=== PATIENT | female | born 1995 | race Caucasian/White ===

== ENCOUNTER 2016-09-15 20:22 | Emergency (ER) | payer SELFPAY ==
[~2016-09-15] VITALS: Ht 167.6 cm; Wt 108.9 kg
[2016-09-15 22:00] VITALS: BP 118/74
[2016-09-15 22:08] LABS: BILIRUBIN,URINE NEGATIVE (NEG); GLUCOSE,URINE NEGATIVE (NEG); NITRITE,URINE NEGATIVE (NEG); PH,URINE 5.5; PROTEIN,URINE NEGATIVE (NEG-TRACE); UROBILINOGEN,URINE 0.2 mg/dL (0.2 mg/dL)
[2016-09-15 22:18] LABS: BACTERIA,URINE FEW /HPF (0-FEW); RBC,URINE OCC /HPF (0-2); SQUAMOUS EPITHELIAL CELL,UR MANY /LPF
[2016-09-15 22:38] LABS: BASO # 0.1 x10^3/uL (0.0-0.2); BASO % 1 % (0-3); EOS % 7 % (0-3); HEMATOCRIT 39.8 % (36.0-47.0); HEMOGLOBIN 13.5 g/dL (12.0-15.5); LYMPH # 2.4 x10^3/uL (1.0-4.8); LYMPH % 24 % (24-48); MEAN CORPUSCULAR HEMOGLOBIN 29 pg (25-35); MEAN CORPUSCULAR HGB CONC 34 g/dL (31-37); MEAN CORPUSCULAR VOLUME 87 fL (79-100); MONO % 8 % (0-9); NEUT % 61 % (31-73); PLATELET COUNT 318 x10^3/uL (140-400); RED BLOOD COUNT 4.59 x10^6/uL (3.50-5.40); RED CELL DISTRIBUTION WIDTH 13.1 % (11.5-14.5); WHITE BLOOD COUNT 10.1 x10^3/uL (4.0-11.0)
[2016-09-15 22:47] LABS: CALCIUM 8.9 mg/dL (8.5-10.1); CREATININE 0.9 mg/dL (0.6-1.0); GFR 78.3; POTASSIUM 3.7 mmol/L (3.5-5.1)
--- NOTE | 2016-09-15 22:59 | RAD ---
PROCEDURE CT cervical spine without contrast. HISTORY Right-sided neck pain. No injury. TECHNIQUE Helical CT imaging of the cervical spine is performed without IV contrast. PQRS: One or more the following individualized dose reduction techniques were utilized for the study: 1. Automated exposure control. 2. Adjustment of the mA and/or kV according to patient size. 3. Use of iterative reconstruction technique. COMPARISON None. FINDINGS No perched or jumped facets. There is minimal grade 1 anterolisthesis of C2 on C3. Straightening of normal cervical lordosis may be positional or due to muscle spasm. The alignment is otherwise maintained. No disc space narrowing or degenerative changes are seen. There is no acute fracture. The mastoid air cells are aerated. No high-grade narrowing of the central canal is identified. There is probably moderate right neural foraminal narrowing of C3/C4 due to uncinate process hypertrophy. Other neural foramina appear patent. Probable 5 millimeter hypodense nodule of the left thyroid lobe. Lung apices are clear. IMPRESSION No acute fracture or malalignment. Electronically signed by: Tomy Gould MD (Sep 15, 2016 22:58:28)
[2016-09-16] MEDS ORDERED: CYCL10TA2 PO (00:35)
[2016-09-16] MEDS ORDERED: NAPR500T8 PO (00:35)
--- NOTE | 2016-09-16 00:35 | PHYS DOC ---
Past Medical History Past Medical History: No Pertinent History Past Surgical History: No Surgical History Alcohol Use: None Drug Use: None Adult General Chief Complaint Chief Complaint: Neck Pain [facility] HPI Patient is a 21 year old female who presents complaining of right lateral neck pain, she states she is completely unable to move her neck towards the right side. Patient states this began this morning. Patient describes the pain as sharp. Patient denies any fever headache nausea or vomiting. Patient states she is not sure if she is because her last menstrual cycle was in June. Review of Systems Review of Systems Constitutional: Denies fever or chills [] Eyes: Denies change in visual acuity, redness, or eye pain [] HENT: Denies nasal congestion or sore throat [] Respiratory: Denies cough or shortness of breath [] Cardiovascular: No additional information not addressed in HPI [] GI: Denies abdominal pain, nausea, vomiting, bloody stools or diarrhea [] : Denies dysuria or hematuria [] Musculoskeletal: Right lateral neck pain Integument: Denies rash or skin lesions [] Neurologic: Denies headache, focal weakness or sensory changes [] Endocrine: Denies polyuria or polydipsia [] Allergies Allergies Allergies Coded Allergies Type Severity Reaction Last Updated Verified No Known Drug Allergies 09/15/16 No Physical Exam Physical Exam Constitutional: Well developed, well nourished, no acute distress, non-toxic appearance. [] HENT: Normocephalic, atraumatic, bilateral external ears normal, oropharynx moist, no oral exudates, nose normal. [] Eyes: PERRLA, EOMI, conjunctiva normal, no discharge. [] Neck: Cervical spine with no obvious deformity, patient is favoring the right lateral cervical spine. Paraspinal muscle tenderness to the right cervical spine , supple, no stridor. Negative Kernig sign, negative Brudzinski's sign. Cardiovascular:Heart rate regular rhythm, no murmur [] Lungs & Thorax: Bilateral breath sounds clear to auscultation [] Abdomen: Bowel sounds normal, soft, no tenderness, no masses, no pulsatile masses. [] Skin: Warm, dry, no erythema, no rash. [] Back: No tenderness, no CVA tenderness. [] Extremities: No tenderness, no cyanosis, no clubbing, ROM intact, no edema. [] Neurologic: Alert and oriented X 3, normal motor function, normal sensory function, no focal deficits noted. [] Psychologic: Affect normal, judgement normal, mood normal. [] Current Patient Data Vital Signs Vital Signs Date Time Temp Pulse Resp B/P Pulse Ox O2 Delivery O2 Flow Rate FiO2 09/15/16 22:00 98.5 82 118/74 99 98.5 09/15/16 20:31 18 Room Air Lab Values Laboratory Tests Test 09/15/16 21:03 09/15/16 21:50 09/15/16 22:31 POC Urine HCG, Qualitative Hcg negative (Negative) Urine Collection Type Void Urine Color Yellow Urine Clarity Cloudy Urine pH 5.5 Urine Specific [place] 1.020 Urine Protein Negativemg/dL (NEG-TRACE) Urine Glucose (UA) Negativemg/dL (NEG) Urine Ketones (Stick) Negativemg/dL (NEG) Urine Blood Moderate (NEG) Urine Nitrite Negative (NEG) Urine Bilirubin Negative (NEG) Urine Urobilinogen Dipstick 0.2mg/dL (0.2 mg/dL) Urine Leukocyte Esterase Negative (NEG) Urine RBC Occ/HPF (0-2) Urine WBC 1-4/HPF (0-4) Urine Squamous Epithelial Cells Many/LPF Urine Bacteria Few/HPF (0-FEW) Urine Mucus Marked/LPF White Blood Count 10.1x10^3/uL (4.0-11.0) Red Blood Count 4.59x10^6/uL (3.50-5.40) Hemoglobin 13.5g/dL (12.0-15.5) Hematocrit 39.8% (36.0-47.0) Mean Corpuscular Volume 87fL (79-100) Mean Corpuscular Hemoglobin 29pg (25-35) Mean Corpuscular Hemoglobin Concent 34g/dL (31-37) Red Cell Distribution Width 13.1% (11.5-14.5) Platelet Count 318x10^3/uL (140-400) Neutrophils (%) (Auto) 61% (31-73) Lymphocytes (%) (Auto) 24% (24-48) Monocytes (%) (Auto) 8% (0-9) Eosinophils (%) (Auto) 7% (0-3) H Basophils (%) (Auto) 1% (0-3) Neutrophils # (Auto) 6.2x10^3uL (1.8-7.7) Lymphocytes # (Auto) 2.4x10^3/uL (1.0-4.8) Monocytes # (Auto) 0.8x10^3/uL (0.0-1.1) Eosinophils # (Auto) 0.7x10^3/uL (0.0-0.7) Basophils # (Auto) 0.1x10^3/uL (0.0-0.2) Sodium Level 137mmol/L (136-145) Potassium Level 3.7mmol/L (3.5-5.1) Chloride Level 101mmol/L (98-107) Carbon Dioxide Level 28mmol/L (21-32) Anion Gap 8 (6-14) Blood Urea Nitrogen 13mg/dL (7-20) Creatinine 0.9mg/dL (0.6-1.0) Estimated GFR (Cockcroft-Gault) 78.3 Glucose Level 99mg/dL (70-99) Calcium Level 8.9mg/dL (8.5-10.1) Thyroid Stimulating Hormone (TSH) 3.829uIU/mL (0.358-3.74) H Laboratory Tests 09/15/16 22:31 Laboratory Tests 09/15/16 22:31 EKG EKG [] Radiology/Procedures Radiology/Procedures []PROCEDURE CT cervical spine without contrast. HISTORY Right-sided neck pain. No injury. TECHNIQUE Helical CT imaging of the cervical spine is performed without IV contrast. PQRS: One or more the following individualized dose reduction techniques were utilized for the study: 1. Automated exposure control. 2. Adjustment of the mA and/or kV according to patient size. 3. Use of iterative reconstruction technique. COMPARISON None. FINDINGS No perched or jumped facets. There is minimal grade 1 anterolisthesis of C2 on C3. Straightening of normal cervical lordosis may be positional or due to muscle spasm. The alignment is otherwise maintained. No disc space narrowing or degenerative changes are seen. There is no acute fracture. The mastoid air cells are aerated. No high-grade narrowing of the central canal is identified. There is probably moderate right neural foraminal narrowing of C3/C4 due to uncinate process hypertrophy. Other neural foramina appear patent. Probable 5 millimeter hypodense nodule of the left thyroid lobe. Lung apices are clear. IMPRESSION No acute fracture or malalignment. Electronically signed by: Tomy Kwok MD (Sep 15, 2016 22:58:28) DICTATED and SIGNED BY: TOMY KWOK MD DATE: 09/15/16 2258 CC: CARLOS HERNANDEZ APRN; NO PCP; NON,STAFF ~ Course & Med Decision Making Course & Med Decision Making Pertinent Labs and Imaging studies reviewed. (See chart for details) Patient is in the ED complaining of right lateral neck pain that began this morning. No known injury. CT of the cervical spine was noted for possible thyroid mass otherwise no acute findings. TCH is 3.829. Patient was discharged with a muscle relaxer and naproxen. She is to follow-up with her own doctor or a doctor from the list provided in a week. Dragon Disclaimer Dragon Disclaimer This electronic medical record was generated, in whole or in part, using a voice recognition dictation system. Departure Departure Impression: Primary Impression: Torticollis, acute Additional Impressions: Thyroid mass Hypothyroidism Disposition: 01 HOME, SELF-CARE Condition: STABLE Referrals: NO PCP (PCP) Please follow-up with a doctor from the list provided in one week Patient Instructions: Torticollis, Acute Additional Instructions: You were seen for neck pain. Your CT of the neck shows you could have a thyroid mass. Please follow-up with a doctor from the list provided next week. Scripts Naproxen 500 Mg Tablet.dr1 Tab PO BID #60 TAB Ref 1 Prov:CARLOS HERNANDEZ APRN 09/16/16 Cyclobenzaprine Hcl 10 Mg Tablet1 Tab PO TID #30 TAB Prov:CARLOS HERNANDEZ APRN 09/16/16 Problem Qualifiers Additional Impressions: Hypothyroidism Hypothyroidism type: unspecified Qualified Code: E03.9 - Hypothyroidism, unspecified CARLOS HERNANDEZ APRN Sep 16, 2016 00:35
[2016-09-16 07:37] LABS: NEGATIVE OBC STREP NEG; POSITIVE OBC STREP POS
== END 2016-09-16 00:45 | disposition home or self-care (01) ==
LOC: ER 20:22
DX: M43.6 Torticollis (principal); E03.9 Hypothyroidism, unspecified
CPT/HCPCS: 36415; 72125; 80048; 81001; 81025; 84443; 85027; 87070; 87880; 99285-25

== ENCOUNTER 2019-02-04 10:06 | Emergency (ER) | payer SELFPAY ==
[~2019-02-04] VITALS: Ht 167.6 cm; Wt 108.9 kg
[~2019-02-04 10:06] MED LIST: CYCL10TA2 PO; NAPR500T8 PO
[2019-02-04 10:41] LABS: BILIRUBIN,URINE NEGATIVE (NEG); CLARITY,URINE CLEAR; COLOR,URINE YELLOW; NITRITE,URINE NEGATIVE (NEG); PROTEIN,URINE NEGATIVE (NEG-TRACE); UROBILINOGEN,URINE 0.2 mg/dL (0.2 mg/dL)
[2019-02-04 10:59] LABS: BASO # 0.1 x10^3/uL (0.0-0.2); BASO % 1 % (0-3); EOS # 0.9 x10^3/uL (0.0-0.7); EOS % 8 % (0-3); HEMOGLOBIN 12.6 g/dL (12.0-15.5); LYMPH # 2.8 x10^3/uL (1.0-4.8); LYMPH % 23 % (24-48); MEAN CORPUSCULAR HEMOGLOBIN 28 pg (25-35); MEAN CORPUSCULAR HGB CONC 34 g/dL (31-37); MEAN CORPUSCULAR VOLUME 83 fL (79-100); MONO # 0.9 x10^3/uL (0.0-1.1); MONO % 7 % (0-9); NEUT # 7.6 x10^3/uL (1.8-7.7); NEUT % 62 % (31-73); PLATELET COUNT 338 x10^3/uL (140-400); RED BLOOD COUNT 4.45 x10^6/uL (3.50-5.40); RED CELL DISTRIBUTION WIDTH 14.2 % (11.5-14.5); WHITE BLOOD COUNT 12.3 x10^3/uL (4.0-11.0)
[2019-02-04 11:00] LABS: SQUAMOUS EPITHELIAL CELL,UR MOD /LPF
[2019-02-04 11:01] LABS: BACTERIA,URINE FEW /HPF (0-FEW)
[2019-02-04 11:07] LABS: CREATININE 0.9 mg/dL (0.6-1.0); GFR 76.3
[2019-02-04 11:08] LABS: POTASSIUM 4.4 mmol/L (3.5-5.1)
[2019-02-04 11:13] LABS: ALBUMIN 3.5 g/dL (3.4-5.0); ALBUMIN/GLOBULIN RATIO 0.8 (1.0-1.7); TOTAL BILIRUBIN 0.3 mg/dL (0.2-1.0); TOTAL PROTEIN 7.9 g/dL (6.4-8.2)
--- NOTE | 2019-02-04 11:21 | PHYS DOC ---
Past Medical History Past Medical History: No Pertinent History Past Surgical History: No Surgical History Alcohol Use: None Drug Use: None Adult General Chief Complaint Chief Complaint: ABDOMINAL PAIN HPI HPI Patient is a 24-year-old female who presents to the emergency department for evaluation. She states that for the past 10 days, she has had some lower abdominal discomfort, radiating towards her left flank area. She has had dysuria, but denies any vaginal bleeding or discharge. Her LMP was some point in December. She has had irregular periods. She has not had any fevers, chills, nausea, vomiting, or diarrhea. She states that when she was living in [place], she had an ultrasound which showed some abnormalities in her pelvic area, but when she came back to this area about 2 years ago she had another ultrasound which was normal, and she has not had other follow-up. I did discuss doing a pelvic examination with the patient but she declined. Expressed understanding of aspects of arae which will be limited by not having pelvic examination performed. Review of Systems Review of Systems Constitutional: Denies fever or chills [] Eyes: Denies change in visual acuity, redness, or eye pain [] HENT: Denies nasal congestion or sore throat [] Respiratory: Denies cough or shortness of breath [] Cardiovascular: The patient denies any shortness of breath, chest pain, palpita tions, or orthopnea [] GI: Denies nausea, vomiting, bloody stools or diarrhea [] : Denies vaginal bleeding or discharge or hematuria [] Musculoskeletal: Denies back pain or joint pain [] Integument: Denies rash or skin lesions [] Neurologic: Denies headache, focal weakness or sensory changes [] Endocrine: Denies polyuria or polydipsia [] All other systems were reviewed and found to be within normal limits, except as documented in this note. Allergies Allergies Allergies Coded Allergies Type Severity Reaction Last Updated Verified No Known Drug Allergies 09/15/16 No Physical Exam Physical Exam PHYSICAL EXAM: CONSTITUTIONAL: Well developed, well nourished HEAD: normocephalic, atraumatic EENT: PERRL, EOMI. Conjunctivae normal color, sclerae non-icteric; moist mucous membranes. NECK: Supple, non-tender; no meningismus. LUNGS: Lungs CTA, breathing even and unlabored. Normal air movement. HEART: Regular rate and rhythm, no murmur CHEST: No deformity; non-tender ABDOMEN: The abdomen is soft, there is mild tenderness to palpation diffusely in the abdomen, mostly in the left abdominal area, both mid and lower abdomen, as well as in the suprapubic area, without definite palpable mass, rebound, or guarding, the remainder the abdomen is soft and non-tender, no masses or bruits. EXTREM: Normal ROM; no deformity, no calf tenderness. Normal pulses palpable in all extremities. There is no pedal edema. SKIN: No rash; no diaphoresis NEURO: Alert; normal speech and cognition; CN's grossly intact; strength grossly intact without focal deficit. BACK: There is mild left-sided CVA TTP. Current Patient Data Vital Signs Vital Signs Date Time Temp Pulse Resp B/P (MAP) Pulse Ox O2 Delivery O2 Flow Rate FiO2 02/04/19 10:40 98.7 69 16 151/86 (107) 96 Room Air 98.7 Lab Values Laboratory Tests Test 02/04/19 10:15 02/04/19 10:23 02/04/19 10:50 Urine Collection Type Unknown Urine Color Yellow Urine Clarity Clear Urine pH 6.0 Urine Specific [place] 1.020 Urine Protein Negative mg/dL (NEG-TRACE) Urine Glucose (UA) Negative mg/dL (NEG) Urine Ketones (Stick) Negative mg/dL (NEG) Urine Blood Trace (NEG) Urine Nitrite Negative (NEG) Urine Bilirubin Negative (NEG) Urine Urobilinogen Dipstick 0.2 mg/dL (0.2 mg/dL) Urine Leukocyte Esterase Negative (NEG) Urine RBC 1-2 /HPF (0-2) Urine WBC 1-4 /HPF (0-4) Urine Squamous Epithelial Cells Mod /LPF Urine Bacteria Few /HPF (0-FEW) Urine Mucus Mod /LPF POC Urine HCG, Qualitative Hcg negative (Negative) White Blood Count 12.3 x10^3/uL (4.0-11.0) H Red Blood Count 4.45 x10^6/uL (3.50-5.40) Hemoglobin 12.6 g/dL (12.0-15.5) Hematocrit 37.0 % (36.0-47.0) Mean Corpuscular Volume 83 fL (79-100) Mean Corpuscular Hemoglobin 28 pg (25-35) Mean Corpuscular Hemoglobin Concent 34 g/dL (31-37) Red Cell Distribution Width 14.2 % (11.5-14.5) Platelet Count 338 x10^3/uL (140-400) Neutrophils (%) (Auto) 62 % (31-73) Lymphocytes (%) (Auto) 23 % (24-48) L Monocytes (%) (Auto) 7 % (0-9) Eosinophils (%) (Auto) 8 % (0-3) H Basophils (%) (Auto) 1 % (0-3) Neutrophils # (Auto) 7.6 x10^3/uL (1.8-7.7) Lymphocytes # (Auto) 2.8 x10^3/uL (1.0-4.8) Monocytes # (Auto) 0.9 x10^3/uL (0.0-1.1) Eosinophils # (Auto) 0.9 x10^3/uL (0.0-0.7) H Basophils # (Auto) 0.1 x10^3/uL (0.0-0.2) Sodium Level 139 mmol/L (136-145) Potassium Level 4.4 mmol/L (3.5-5.1) Chloride Level 105 mmol/L (98-107) Carbon Dioxide Level 27 mmol/L (21-32) Anion Gap 7 (6-14) Blood Urea Nitrogen 13 mg/dL (7-20) Creatinine 0.9 mg/dL (0.6-1.0) Estimated GFR (Cockcroft-Gault) 76.3 BUN/Creatinine Ratio 14 (6-20) Glucose Level 112 mg/dL (70-99) H Calcium Level 9.0 mg/dL (8.5-10.1) Total Bilirubin 0.3 mg/dL (0.2-1.0) Aspartate Amino Transferase (AST) 27 U/L (15-37) Alanine Aminotransferase (ALT) 21 U/L (14-59) Alkaline Phosphatase 72 U/L (46-116) Total Protein 7.9 g/dL (6.4-8.2) Albumin 3.5 g/dL (3.4-5.0) Albumin/Globulin Ratio 0.8 (1.0-1.7) L Lipase 133 U/L (73-393) Laboratory Tests 02/04/19 10:50 Laboratory Tests 02/04/19 10:50 EKG EKG [] Radiology/Procedures Radiology/Procedures [PROCEDURE: CT ABDOMEN PELVIS WO CONTRAST PQRS Compliance Statement: One or more of the following individualized dose reduction techniques were utilized for this examination: 1. Automated exposure control 2. Adjustment of the mA and/or kV according to patient size 3. Use of iterative reconstruction technique CT abdomen/pelvis without contrast 02/04/2019 11:23 AM INDICATION: Left flank pain COMPARISON: None available TECHNIQUE: Multiple axial CT images of the abdomen and pelvis were obtained without intravenous contrast. Coronal and sagittal reformats are provided. FINDINGS: Lung bases are clear. Heart size within normal limits. Evaluation of the solid abdominal viscera is limited by lack of intravenous contrast. Liver, spleen, bilateral adrenal glands, pancreas and gallbladder are normal in appearance. The abdominal aorta is normal in course and caliber. There are no pathologically enlarged lymph nodes in the abdomen and pelvis. There is no abdominal free fluid. There is no free intraperitoneal air. Small and large bowel are normal in caliber. There is no evidence for bowel obstruction. There are no pericolonic inflammatory changes. A normal, nondilated appendix is visualized without adjacent inflammatory changes. The kidneys are relatively symmetric in appearance. There is no suspicious renal mass within the limitations of a noncontrast examination. There is no hydronephrosis. There are no calculi within the kidneys, ureters or urinary bladder. There may be a duplicated left ureter. Urinary bladder is within normal limits given degree of distention. Uterus is normal in appearance. Tubular fluid-filled structure is identified in the left adnexa may represent follicular changes within the left ovary versus hydrosalpinx. There may be mild right hydrosalpinx. No suspicious osseous abnormality is identified. IMPRESSION: 1. Suspect bilateral hydrosalpinx. Further characterization with pelvic ultrasound may be of benefit. Follicular changes are noted in the adnexa bilaterally. No free fluid. 2. No obstructive uropathy. There may be duplication of the left ureter.] Course & Med Decision Making Course & Med Decision Making Pertinent Labs and Imaging studies reviewed. (See chart for details) []1:20 PM: The patient's condition remains stable. I discussed test results with the patient, the need for close outpatient gynecology follow-up and return precautions. Her symptoms are suggestive of a urinary tract infection, and she'll be treated presumptively for such. Dragon Disclaimer Dragon Disclaimer This electronic medical record was generated, in whole or in part, using a voice recognition dictation system. Departure Departure Impression: Primary Impression: Abdominal pain Disposition: 01 HOME, SELF-CARE Condition: STABLE Referrals: MOISE BRO Jr, MD Patient Instructions: Abdominal Pain, Urinary Tract Infection Scripts Sulfamethoxazole/Trimethoprim (BACTRIM DS TABLET) 1 Each Tablet 1 TAB PO BID, #14 TAB Prov: CHRISTIANNE HOWELL MD 02/04/19 CHRISTIANNE HOWELL MD Feb 04, 2019 11:21
--- NOTE | 2019-02-04 12:14 | RAD ---
PQRS Compliance Statement: One or more of the following individualized dose reduction techniques were utilized for this examination: 1. Automated exposure control 2. Adjustment of the mA and/or kV according to patient size 3. Use of iterative reconstruction technique CT abdomen/pelvis without contrast 02/04/2019 11:23 AM INDICATION: Left flank pain COMPARISON: None available TECHNIQUE: Multiple axial CT images of the abdomen and pelvis were obtained without intravenous contrast. Coronal and sagittal reformats are provided. FINDINGS: Lung bases are clear. Heart size within normal limits. Evaluation of the solid abdominal viscera is limited by lack of intravenous contrast. Liver, spleen, bilateral adrenal glands, pancreas and gallbladder are normal in appearance. The abdominal aorta is normal in course and caliber. There are no pathologically enlarged lymph nodes in the abdomen and pelvis. There is no abdominal free fluid. There is no free intraperitoneal air. Small and large bowel are normal in caliber. There is no evidence for bowel obstruction. There are no pericolonic inflammatory changes. A normal, nondilated appendix is visualized without adjacent inflammatory changes. The kidneys are relatively symmetric in appearance. There is no suspicious renal mass within the limitations of a noncontrast examination. There is no hydronephrosis. There are no calculi within the kidneys, ureters or urinary bladder. There may be a duplicated left ureter. Urinary bladder is within normal limits given degree of distention. Uterus is normal in appearance. Tubular fluid-filled structure is identified in the left adnexa may represent follicular changes within the left ovary versus hydrosalpinx. There may be mild right hydrosalpinx. No suspicious osseous abnormality is identified. IMPRESSION: 1. Suspect bilateral hydrosalpinx. Further characterization with pelvic ultrasound may be of benefit. Follicular changes are noted in the adnexa bilaterally. No free fluid. 2. No obstructive uropathy. There may be duplication of the left ureter. Electronically signed by: Diana Conroy MD (02/04/2019 12:11 PM) [id number]
[2019-02-04 13:20] VITALS: BP 118/72
[2019-02-04] MEDS ORDERED: SULF1TAB24 PO (13:25)
== END 2019-02-04 13:45 | disposition home or self-care (01) ==
LOC: ER 10:06
DX: R10.84 Generalized abdominal pain (principal); R30.0 Dysuria
CPT/HCPCS: 36415; 74176; 80053; 81001; 81025; 83690; 85025; 99285-25

== ENCOUNTER 2019-11-04 17:27 | Emergency (ER) | payer SELFPAY ==
[~2019-11-04] VITALS: Ht 172.7 cm; Wt 100.0 kg
[~2019-11-04 17:27] MED LIST changes: +SULF1TAB24 PO
--- NOTE | 2019-11-04 18:28 | RAD ---
INDICATION: Cough COMPARISON: None. FINDINGS: Single view of chest obtained. Hypoexpanded examination without definite focal airspace consolidation. Cardiac silhouette is mildly prominent but likely exaggerated by portable technique. IMPRESSION: * Hypoexpanded exam without focal airspace consolidation. Electronically signed by: David Masters MD (11/04/2019 6:25 PM) [id number]
[2019-11-04] MEDS ORDERED: BENZ100C PO (18:59)
[2019-11-04] MEDS ORDERED: CETI10TA24 PO (18:59)
--- NOTE | 2019-11-04 19:03 | PHYS DOC ---
Past Medical History Past Medical History: No Pertinent History Past Surgical History: No Surgical History Smoking Status: Never Smoker Alcohol Use: None Drug Use: None General Adult EDM: Chief Complaint: COUGH HPI: HPI: Patient is a 24 year old female with no significant medical history who presents to the ED today complaining of a productive cough, nasal congestion and teary eyes, symptoms began 4 days ago. Patient denies any fever. 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 She states several people in the plant have pneumonia and "stuff" but she does not know anyone who has been diagnosed with COVID19. Denies any chest pain or shortness of breath. Denies any fever. Review of Systems: Review of Systems: Constitutional: Denies fever or chills. [] Eyes: Reports teary eyes. Denies change in visual acuity. [] HENT: Reports nasal congestion, denies sore throat. [] Respiratory: Reports cough, denies shortness of breath. [] Cardiovascular: Denies chest pain or edema. [] GI: Denies abdominal pain, nausea, vomiting, bloody stools or diarrhea. [] : Denies dysuria. [] Musculoskeletal: Denies back pain or joint pain. [] Integument: Denies rash. [] Neurologic: Denies headache, focal weakness or sensory changes. [] Psychiatric: Denies depression or anxiety. [] Heart Score: Risk Factors: Risk Factors: DM, Current or recent (<one month) smoker, HTN, HLP, family history of CAD, obesity. Risk Scores: Score 0 - 3: 2.5% MACE over next 6 weeks - Discharge Home Score 4 - 6: 20.3% MACE over next 6 weeks - Admit for Clinical Observation Score 7 - 10: 72.7% MACE over next 6 weeks - Early Invasive Strategies Allergies: Allergies: Allergies Coded Allergies Type Severity Reaction Last Updated Verified No Known Drug Allergies 09/15/16 No Physical Exam: PE: Constitutional: Well developed, well nourished, no acute distress, non-toxic appearance. [] HENT: Normocephalic, atraumatic, bilateral external ears normal, oropharynx moist, no oral exudates, nose normal. [] Eyes: PERRLA, EOMI, conjunctiva normal, no discharge. [] Neck: Normal range of motion, no tenderness, supple, no stridor. [] Cardiovascular:Heart rate regular rhythm, no murmur [] Lungs & Thorax: Bilateral breath sounds clear to auscultation [] Abdomen: Bowel sounds normal, soft, no tenderness, no masses, no pulsatile masses. [] Skin: Warm, dry, no erythema, no rash. [] Back: No tenderness, no CVA tenderness. [] Extremities: No tenderness, no cyanosis, no clubbing, ROM intact, no edema. [] Neurologic: Alert and oriented X 3, normal motor function, normal sensory function, no focal deficits noted. [] Psychologic: Affect normal, judgement normal, mood normal. [] Current Patient Data: Vital Signs: Vital Signs Date Time Temp Pulse Resp B/P (MAP) Pulse Ox O2 Delivery O2 Flow Rate FiO2 11/04/19 17:35 98.3 70 18 124/72 (89) 99 Room Air 98.3 EKG: EKG: [] Radiology/Procedures: Radiology/Procedures: []PROCEDURE: CHEST AP ONLY INDICATION: Cough COMPARISON: None. FINDINGS: Single view of chest obtained. Hypoexpanded examination without definite focal airspace consolidation. Cardiac silhouette is mildly prominent but likely exaggerated by portable technique. IMPRESSION: * Hypoexpanded exam without focal airspace consolidation. Electronically signed by: Omar Masters MD (11/04/2019 6:25 PM) [id number] DICTATED and SIGNED BY: OMAR MASTERS MD DATE: 11/04/191824 Course & Med Decision Making: Course & Med Decision Making Pertinent Labs and Imaging studies reviewed. (See chart for details) This is a 24-year-old female patient presenting to the ED today complaining of cough nasal congestion and teary eyes that began 4 days ago. Chest x-ray is negative. Patient is afebrile, O2 sats above 98% on room air. Will discharge to home. COVID19 testing pending. 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 Provided return precautions and discharged in stable condition. Ivis Disclaimer: Ivis Disclaimer: This electronic medical record was generated, in whole or in part, using a voice recognition dictation system. COVID-19 Patient Risks: Age 65 or older: No Sign of co-morbidity: No Exp to person + for COVID: No Exp to PUI: No Travel from affected area: No Lower respiratory symptoms: Yes Fever: No Other: No PPE Use: Full PPE with N95 mask or PAPR: Yes Departure Departure Impression: Primary Impression: Cough Additional Impressions: Allergic rhinitis Qualified Codes: J30.2 - Other seasonal allergic rhinitis Allergic conjunctivitis Qualified Codes: H10.13 - Acute atopic conjunctivitis, bilateral Person under investigation for COVID-19 Disposition: 01 HOME, SELF-CARE Condition: STABLE Referrals: NO PCP (PCP) follow up with your doctor in 1 week Patient Instructions: Allergic Conjunctivitis, Allergic Rhinitis, Cough, Adult, [id number] Additional Instructions: You were evaluated in the emergency room, your chest x-ray is negative for pneumonia follow-up with your doctor in 1 to 2 weeks take the prescribed medications as ordered Scripts Cetirizine Hcl (ZYRTEC) 10 Mg Tablet 1 TAB PO DAILY, #30 TAB 2 Refills Prov: CARLOS HERNANDEZ APRN 11/04/19 Benzonatate (TESSALON PERLE) 100 Mg Capsule 1 CAP PO TID, #21 CAP Prov: CARLOS HERNANDEZ APRN 11/04/19 CARLOS HERNANDEZ APRN November 04, 2019 19:03
[2019-11-04 19:06] VITALS: BP 126/68
--- NOTE | 2019-11-06 10:27 | NUR ---
IP: Pt is COVID negative.
== END 2019-11-04 19:10 | disposition home or self-care (01) ==
LOC: ER 17:27
DX: J30.2 Other seasonal allergic rhinitis (principal); H10.13 Acute atopic conjunctivitis, bilateral; R05 Cough; Z20.828 Contact with and (suspected) exposure to other viral communicable diseases
CPT/HCPCS: 36415; 71045; 87635; 99284